=== PATIENT | male | born 1945 | race Hispanic/Latino ===

== ENCOUNTER 2019-06-08 08:16 | Outpatient (CLI) | payer BC, MEDICARE ==
--- NOTE | 2019-06-08 10:11 | Cat Scan Report ---
CT ABDOMEN AND PELVIS WITHOUT CONTRAST HISTORY: C61 MALIGNANT NEOPLASM OF PROSTATE COMPARISON: None. TECHNIQUE: Axial CT images were obtained through the abdomen and pelvis without IV contrast. Sagittal and coronal reformatted images. All CT scans at this location are performed using CT dose reduction for ALARA by means of automated exposure control. FINDINGS: CT ABDOMEN: Lung Bases: There are a few scattered tiny subpleural nodules in both lung bases measuring up to 3 mm . Overall these have a benign appearance. No infiltrate or pleural effusion. Normal heart size. Liver: No significant abnormality. Biliary: No significant abnormality. Spleen: No significant abnormality. Unenlarged. Pancreas: No significant abnormality. Adrenals: No significant abnormality. Kidneys: Multiple bilateral renal calyceal stones are scattered throughout both kidneys measuring up to 5 mm. Approximately 8-10 stones are identified in each kidney. No obvious focal renal lesion, uret eral stones or hydronephrosis. Lymphatics: No lymphadenopathy. Vasculature: No significant abnormality. Bowel/Peritoneum: There are multiple diverticula in the descending and sigmoid colon. No evidence for focal inflammation or obstruction. No obvious mass. Normal appendix. CT PELVIS: : The bladder, distal ureters and prostate gland are unremarkable. Osseous Structures: No suspicious blastic bony lesions are detected. Mild lumbar spondylosis. Additional Findings: None IMPRESSION: No evidence for metastatic disease to the abdomen or pelvis. Tiny subpleural nodules at both lung bases. A benign etiology is suspected. Bilateral nephrolithiasis, nonobstructing. Signer Name: Cesar Shah Jr, MD Signed: 06/08/2019 10:06 AM Workstation Name: [id number]
--- NOTE | 2019-06-08 13:25 | Nuclear Medicine Report ---
Nuclear medicine whole body bone imaging study. History: C61 MALIGNANT NEOPLASM OF PROSTATE Comparison: No prior bone scans are available for comparison. CT abdomen pelvis from earlier the was reviewed. Procedure: The patient was administered 25.1 mCi of technetium 99m labeled MDP intravenously. Findings: There is bilateral, relatively symmetric articular activity which is most likely degenerati ve given the distribution and symmetry. No asymmetric radiotracer activity is seen within the included axial and appendicular skeleton. There is normal soft tissue activity in the kidneys and urinary bladder. Impression: No scintigraphic evidence of osseous metastatic disease. Presumed degenerative changes, a s above. Signer Name: Merlin Hoover MD Signed: 06/08/2019 1:21 PM Workstation Name: [id number]
== END 2019-06-08 08:17 | disposition home or self-care (01) ==
LOC: NM 08:16
PROVIDERS: ATTEND Urology
DX: C61 Malignant neoplasm of prostate (principal); R91.1 Solitary pulmonary nodule; N20.0 Calculus of kidney
CPT/HCPCS: 74176; 78306; A9503

== ENCOUNTER 2020-12-06 11:20 | Day surgery (SDC) | payer BC, MEDICARE ==
[2020-11-29 14:43] LABS: Hematocrit 36.4 % (35.5-45.6); Hemoglobin 12.3 gm/dl (11.8-15.2); Mean Corpuscular HGB Conc 34 % (32-34); Mean Corpuscular Volume 89 fl (84-94); Platelet Count 126 K/mm3 (140-440); Red Blood Count 4.07 M/mm3 (3.65-5.03); Red Cell Distribution Width 15.3 % (13.2-15.2)
[2020-11-29 15:17] LABS: Alanine Aminotransferase 18 units/L (7-56); Albumin 4.3 g/dL (3.9-5); BUN/Creatinine Ratio 13; Blood Urea Nitrogen 10 mg/dL (9-20); Calcium 9.7 mg/dL (8.4-10.2); Hemolysis Index 6
[~2020-12-06 11:20] MED LIST: IOHEXOL 300 MG/ML 50ML IV ONE; LACTATED RINGERS 1,000 ML IV SCH; WATER FOR IRRIG STERILE 2000 ML IR ONE
--- NOTE | 2020-12-06 12:08 | Anesthesia Consultation ---
Anesthesia Consult and Med Hx Date of service: 12/06/20 - Airway Anesthetic Teeth Evaluation: Partials ROM Head & Neck: Adequate Mental/Hyoid Distance: Adequate Mallampati Class: Class III Intubation Access Assessment: Possibly Difficult - Pre-Operative Health Status ASA Pre-Surgery Classification: ASA2 Proposed Anesthetic Plan: General - Pulmonary Hx Smoking: Yes (former smoker quit 40yrs ago) Hx Respiratory Symptoms: No - Cardiovascular System Hx Hypertension: Yes (took antihypertensives this morning) Hx Heart Attack/AMI: No Hx Percutaneous Transluminal Coronary Angioplasty (PTCA): No Hx Cardia Arrhythmia: No - Central Nervous System CVA: No - Gastrointestinal Hx Gastroesophageal Reflux Disease: Yes (took omeprazole this morning; controlled) - Endocrine Hx Renal Disease: No Hx Liver Disease: No Hx Insulin Dependent Diabetes: No Hx Non-Insulin Dependent Diabetes: No Hx Thyroid Disease: No - Other Systems Hx Cancer: Yes (hx prostate ca) - Additional Comments Anesthesia Medical History Comments: Had surgery 08/2020 under [place] without anesthetic complications. No change in health since that procedure.
--- NOTE | 2020-12-06 12:08 | Anesthesia Day of Surgery ---
Anesthesia Day of Surgery - Day of Surgery Patient Examined: Yes Patient H&P Reviewed: Yes Patient is NPO: Yes
[2020-12-06] MEDS ORDERED: ONDANSETRON 4 MG/2 ML INJ IV PRN (12:13)
[2020-12-06] MEDS ORDERED: ceFAZolin/STERILE WATER 2 GM/20 ML SYRINGE IV NR (12:34)
[2020-12-06] MEDS ORDERED: HYDROcodone/ACETAMINOPHEN 5-325 MG TAB PO PRN (13:08)
[2020-12-06] MEDS ORDERED: HYDROmorphone 1 MG/1 ML INJ ONE (13:21)
[2020-12-06] MEDS ORDERED: propofoL 200 MG/20 ML VIAL IV ONE (13:22)
[2020-12-06] MEDS ORDERED: WATER FOR IRRIG STERILE 2000 ML IR ONE (13:46)
[2020-12-06] MEDS ORDERED: LIDOCAINE MPF (2%) 20 MG/1 ML VIAL 5 ML ONE (13:47)
[2020-12-06] MEDS ORDERED: IOHEXOL 300 MG/ML 50ML IV ONE (13:52)
[2020-12-06] MEDS ORDERED: ONDANSETRON 4 MG/2 ML INJ ONE (14:14)
--- NOTE | 2020-12-06 14:28 | Post Operative Note ---
Date of procedure: 12/06/20 Pre-op diagnosis: heme Post-op diagnosis: other (stone) Findings: distasl stone Procedure: cysto bx ureteroscopy Anesthesia: GETA Surgeon: PRUDENCIO PACHECO Estimated blood loss: none Pathology: list (stones) Specimen disposition: given to patient/family Condition: stable Disposition: PACU
--- NOTE | 2020-12-06 14:29 | Discharge Summary ---
Short Stay Discharge Plan Activity: other (no strining ) Weight Bearing Status: Full Weight Bearing Diet: low fat, low cholesterol, low salt Special Instructions: other (inc fluids ) Durable Medical Equipment Needed Upon Discharge: other (j stent ) Follow up with: ARSEN LOZADA MD [Primary Care Provider] - 7 Days PRUDENCIO PACHECO MD [Staff Physician] - 7 Days
[2020-12-06] MEDS: fentaNYL 100 MCG/2 ML INJ IV PRN ×2 (14:47→15:05)
--- NOTE | 2020-12-06 14:57 | Fluoroscopy Report ---
INTRAOPERATIVE FLUOROSCOPY: RETROGRADE UROGRAPHY INDICATION / CLINICAL INFORMATION: DYSURIA, PROSTATE CANCER. TECHNIQUE: Intraoperative spot images were obtained during the procedure. FINDINGS: Images show bilateral retrograde pyelogram and left ureteral stent placement See operative/procedure note by performing physician for full details. Fluoroscopy Time: 2.2 minutes. Fluoroscopy Images: 9. Signer Name: Noe Mercer MD Signed: 12/06/2020 2:52 PM Workstation Name: [id number]
[2020-12-06 15:32] VITALS: BP 143/81
--- NOTE | 2020-12-11 09:45 | Operative Report ---
DATE OF SURGERY: 12/06/2020 PREOPERATIVE DIAGNOSIS: Ureteral stone. POSTOPERATIVE DIAGNOSIS: Ureteral stone. PROCEDURES: Cystoscopy, biopsies, ureteroscopy. SURGEON: Umair Pizarro MD ANESTHESIA: General. FINDINGS: This is a gentleman with a history of stone disease, previous smoker, who has had hematuria, now presents for cystoscopy. He has some irregularity on the bladder wall. He now presents for biopsies and retrogrades, history of stones. DESCRIPTION OF PROCEDURE: The patient was brought to the OR and placed on the operating table. Following induction of anesthesia, placed in lithotomy position, prepped and draped in usual sterile fashion. Cystourethroscopy showed no more erythema. Random biopsies were done. Retrograde showed a filling defect, left distal ureter. Ureteroscopy was accomplished and revealed a stone, which was extracted after it was lasered. The patient tolerated the procedure well and brought to Recovery in stable condition. Stent was then placed. Stone will be given to the patient. TID: [id number] RECEIPT: [id number] PILAR/MARCUS
== END 2020-12-06 16:00 | disposition home or self-care (01) ==
LOC: OR 11:20
PROVIDERS: ATTEND Urology
DX: N20.1 Calculus of ureter (principal); C61 Malignant neoplasm of prostate; I10 Essential (primary) hypertension; K21.9 Gastro-esophageal reflux disease without esophagitis; M19.90 Unspecified osteoarthritis, unspecified site; M10.9 Gout, unspecified; Z87.891 Personal history of nicotine dependence; Z79.899 Other long term (current) drug therapy; Z98.890 Other specified postprocedural states; Z20.822 Contact with and (suspected) exposure to COVID-19
CPT/HCPCS: 36415; 52204; 74420; 80053; 85027; 88305; A4217; C1758; C2617; J0690; J1170; J2405; J2704; J3010; J7120; Q9967; U0003